=== PATIENT | male | born 1985 | race Two or more races ===

== ENCOUNTER 2020-05-04 15:46 | Emergency (ER) | payer SELFPAY ==
[~2020-05-04] VITALS: Ht 177.8 cm; Wt 81.6 kg
[2020-05-04 15:47] VITALS: BP 147/99
[2020-05-04] MEDS ORDERED: LIDOCAINE 1% HCL (LOCAL ANESTH.) INJ 20ML MDV IJ ONE (17:00)
== END 2020-05-04 17:30 | disposition home or self-care (01) ==
LOC: ER 15:46
DX: S61.411A Laceration without foreign body of right hand, initial encounter (principal); S61.401A Unspecified open wound of right hand, initial encounter; X58.XXXA Exposure to other specified factors, initial encounter; Y93.89 Activity, other specified; Y92.89 Other specified places as the place of occurrence of the external cause; Y99.8 Other external cause status
CPT/HCPCS: 12002; 99283; J2001

== ENCOUNTER 2020-05-12 19:03 | Emergency (ER) | payer SELFPAY ==
[~2020-05-12] VITALS: Ht 177.8 cm; Wt 81.6 kg
[2020-05-12 21:27] VITALS: BP 133/93
== END 2020-05-12 21:43 | disposition home or self-care (01) ==
LOC: ER 19:05
DX: S61.411D Laceration without foreign body of right hand, subsequent encounter (principal); X58.XXXD Exposure to other specified factors, subsequent encounter